=== PATIENT | female | born 1990 ===

== ENCOUNTER 2025-06-27 13:32 | Outpatient (REF) | payer OTHER, SELFPAY ==
[2025-06-27 17:56] LABS: MANUAL DIFF FLAG NO
[2025-06-27 18:11] LABS: Appearance Urine Clear; Glucose Urine UA Negative (Negative); Hematocrit 37.4 % (37.0-47.0); Hemoglobin 12.7 g/dl (12.0-16.0); Imm Gran Abs Auto 0.03 X10*3/uL (0.00-0.03); Imm Gran Pct Auto 0.3 % (0.0-0.4); Lymphocytes Absolute Auto 2.2 X10*3/uL (1.2-4.9); Mean Corpuscular HGB Conc 34.0 g/dl (31.0-35.0); Mean Corpuscular Hemoglobin 27.2 pg (27.0-33.0); Mean Corpuscular Volume 80.1 fL (80.0-98.0); NRBC Abs Auto 0.000 X10*3/uL (0.0-0.012); NRBC Pct Auto 0.0 /100WBC (0.0-0.2); PH 6.5 (5.0-9.0); Platelet Count 330 X10*3/uL (160-400); Red Blood Count 4.67 X10*6/uL (4.20-5.50); Specific Gravity - Urine 1.015 (1.005-1.025); White Blood Count 9.2 X10*3/uL (4.8-10.8)
[2025-06-27 18:15] LABS: Hemoglobin A1C 125.1159 umol/L
[2025-06-27 18:40] LABS: Ferritin 63 ng/mL (10-122)
[2025-06-27 18:41] LABS: Alanine Aminotransferase 31 U/L (0-31); Albumin Level 4.6 g/dL (3.5-5.0); Alkaline Phosphatase 80 U/L (39-117); Anion Gap 10 (12-20); Aspartate Amino Transferase 36 U/L (5-31); Blood Urea Nitrogen 10 mg/dL (9-16); Calcium 9.1 mg/dL (8.4-10.2); Carbon Dioxide 27 mmol/L (22-29); Chloride 109 mmol/L (96-108); Cholesterol 178 mg/dL (<200); Estimated Glomerular Filt Rate > 60; HDL Cholesterol 51 mg/dL (>40); Iron 82 mcg/dL (30-160); Magnesium 2.2 mg/dL (1.6-2.6); Percent Iron Saturation 25 % (15-50); Potassium 4.0 mmol/L (3.3-5.1); Sodium 142 mmol/L (135-145); Total Iron Binding Capacity 332 mcg/dL (228-428); Total Protein 7.2 g/dL (6.5-8.0); Triglycerides 101 mg/dL (<150); Unsaturated Iron Binding 250 ug/dL
[2025-06-27 19:02] LABS: Folate 16.1 ng/mL (> or = 4.0); Vitamin B12 589 pg/mL (200-900)
[2025-06-27 19:09] LABS: Erythrocyte Sedimentation Rate 5 MM/HR (0-20)
[2025-06-28 05:27] LABS: Transferrin 305 mg/dL (188-341)
[2025-06-28 08:35] LABS: HBS Num1 7.37 mIU/mL (0-7.99); HBsAGNum1 0.35 S/CO (0.00-0.99); HIV Num 1 0.05 S/CO (0.00-0.99); Hepatitis B Surface Antigen Negative (Negative); ~HepC Num1 0.07 S/CO (0.00-0.79); ~Hepatitis B Surface Antibody NONREACTIVE (Nonreactive); ~Hepatitis C Antibody Nonreactive (Nonreactive)
[2025-07-01 22:08] LABS: Anti Nuclear Antibody Pattern Nuclear, Homogeneous; Anti Nuclear Antibody Screen POSITIVE (NEGATIVE); Anti Nuclear Antibody Titer 1:320 titer
[2025-07-03 00:53] LABS: VITAMIN D (1,25 OH) D3 64 pg/mL; Vit D (1,25-Dihydroxy) Total 64 pg/mL (18-72); Vitamin D (1,25 OH) D2 <8 pg/mL
== END 2025-06-27 13:33 | disposition home or self-care (01) ==
LOC: HO.HKASLDS 13:32
PROVIDERS: PCP Student in an Organized Health Care Education/Training Program; Visit Provider Student in an Organized Health Care Education/Training Program
DX: Z76.89 Persons encountering health services in other specified circumstances (principal); Z13.9 Encounter for screening, unspecified; Z13.1 Encounter for screening for diabetes mellitus; Z13.220 Encounter for screening for lipoid disorders; Z13.6 Encounter for screening for cardiovascular disorders; Z11.4 Encounter for screening for human immunodeficiency virus [HIV]; Z11.3 Encounter for screening for infections with a predominantly sexual mode of transmission; Z71.9 Counseling, unspecified; D50.9 Iron deficiency anemia, unspecified; R76.0 Raised antibody titer; R06.83 Snoring; M25.50 Pain in unspecified joint; R53.83 Other fatigue; E66.812 Obesity, class 2; R51.9 Headache, unspecified; R63.5 Abnormal weight gain; R19.7 Diarrhea, unspecified; R14.0 Abdominal distension (gaseous); L65.9 Nonscarring hair loss, unspecified; F41.9 Anxiety disorder, unspecified; N92.6 Irregular menstruation, unspecified; D21.9 Benign neoplasm of connective and other soft tissue, unspecified; Z82.69 Family history of other diseases of the musculoskeletal system and connective tissue; Z87.42 Personal history of other diseases of the female genital tract; Z83.49 Family history of other endocrine, nutritional and metabolic diseases; Z68.38 Body mass index [BMI] 38.0-38.9, adult
CPT/HCPCS: 36415; 80053; 80061; 81003; 82607; 82652; 82728; 82746; 83036; 83540; 83735; 84443; 84466; 85025; 85652; 86038; 86039; 86140; 86706; 86803; 87340; 87389; 99202

== ENCOUNTER 2025-06-27 13:32 | Outpatient (AMB) | payer OTHER, SELFPAY ==
--- NOTE | 2025-06-27 13:34 | A.OFFPC_ITS ---
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 Certified Prosthetist/Orthotist Required: No Accompanied by: Self / Same As Patient Allergies No Known Allergies Allergy (Verified 06/27/25 13:34) Tobacco use date assessed: 06/27/25 Dental Screening Dental Screen Date: 06/27/25 Did you have a dental visit in the last 12 months?: Yes Did you have a dental problem in the last 6 months where you did not have access to dental care?: No Was dental information given to patient?: Patient has dentist HPI HPI Comments History of Present Illness Details History of Present Illness The patient is a 35-year-old female presenting with fatigue and associated symptoms. Fatigue: - Fatigue has been persistent for over a year, worsening recently. - Associated with heavy menstrual bleedi ng, ovarian cysts, and fibroids. - No dizziness or shortness of breath re ported. - Family history of thyroid disorders an d lupus noted. Heavy Menstrual Bleeding: - Patient reports heavy menstrual bleedi ng, associated with ovarian cysts and fibroids. - Recent rupture of a cyst managed with ibuprofen. Anxiety: - Patient experiences anxiety, sometimes accompanied by palpitations. Alopecia: - Patient reports hair loss, no prior di agnosis of anemia. Bloating: - Persistent bloating for over a year, w orsened recently. - Occurs throughout the day, not related to meals. Unintentional Weight Gain: - Gained approximately 30 pounds over e past year without changes in diet or exercise. Morning Headaches: - Morning headaches reported, sometimes severe. -wakes up gasping for air feels fatigue and tired during the day Diarrhea: - Persistent diarrhea for the past two w eeks, possibly viral in origin. Ankle and Foot Pain: - Chronic ankle and foot pain, particula rly in the morning. - No history of trauma or injury. Review of Systems - General: Reports fatigue for over a ye ar. Denies dizziness or shortness of breath. - Cardiovascular: Reports palpitations a ssociated with anxiety. Denies chest pain. - Respiratory: Denies dyspnea or wheezin g. - Gastrointestinal: Reports persistent b loating and diarrhea for the past two weeks. Denies constipation. - Neurological: Reports morning headache s and brain fog. Denies dizziness. - Musculoskeletal: Reports ankle and seema t pain, particularly in the morning. - Dermatological: Reports hair loss. 10-point ROS reviewed and negative excep t as noted in HPI Past Medical History - Ovarian cysts and fibroids - Anxiety - Family history of thyroid disorders - Family history of lupus Health Maintenance - Pap smear overdue, last performed six years ago - Referral to semaphore operator for weight ma nagement Physical Exam General: Well-appearing, in no acute distress. Vital signs: Within normal limits. HEENT: Normocephalic, atraumatic. PERRLA, EOMI. Conjunctiva clear, sclera anicteric. Oropharynx clear, mucous membranes moist. TMs intact bilaterally. Neck: Supple, no lymphadenopathy, no thyromegaly, no JVD or carotid bruits. Cardiovascular: RRR, normal S1/S2, no murmurs, rubs, or gallops. Peripheral pulses 2+ and symmetric. No edema. Respiratory: Lungs clear to auscultation bilaterally, no wheezes, rales, or rhonchi. Normal effort. Abdomen: Soft, non-tender, non-distended. Normoactive bowel sounds. No hepatosplenomegaly, no masses. MSK: Full range of motion, no joint swelling or deformity. Normal gait. Reports ankle and foot pain in the morning, particularly in the left ankle. Skin: Warm, dry, intact. No rashes, lesions, or pallor. Neuro: Alert and oriented x3. Cranial nerves II-XII intact. Strength 5/5 throughout. Sensation intact. Reflexes 2+ symmetric. Normal coordination and gait. Reports brain fog and memory issues. Psych: Appropriate mood and affect. Normal judgment and insight. Reports anxiety. Plan 1. Fatigue - Order home sleep study to evaluate for obstructive sleep apnea. - Conduct comprehensive blood tests incl uding CBC, CMP, thyroid panel, and iron studies. 2. Heavy Menstrual Bleeding - Consider iron supplementation due to p otential iron deficiency anemia. 3. Anxiety - Monitor symptoms and consider further evaluation if symptoms persist. 4. Alopecia - Evaluate for potential underlying caus es such as thyroid dysfunction or nutritional deficiencies. 5. Bloating - Monitor symptoms and consider dietary modifications. 6. Unintentional Weight Gain - Referral to semaphore operator for weight ma nagement and dietary counseling. 7. Morning Headaches - Evaluate for potential causes such as sleep apnea or nutritional deficiencies. 8. Diarrhea - Prescribe loperamide for symptomatic r elief. 9. Ankle And Foot Pain - Consider further evaluation if symptom s persist. Discussion Notes During the consultation, I discussed the potential causes of the patient's fatigue, including sleep apnea and anemia. I explained the need for a home sleep study and comprehensive blood tests to evaluate these conditions. We also talked about the importance of addressing her heavy menstrual bleeding and potential iron deficiency. I recommended a referral to a semaphore operator for weight management and dietary counseling. The patient was informed about the prescription of loperamide for diarrhea and the need for follow-up if symptoms persist. Patient was informed and verbally consented to the use of an ambient scribe for clinic note documentation during this visit. Patient Instructions - Schedule a home sleep study as instruc saniya. - Complete all prescribed blood tests at the earliest convenience. - Take loperamide as needed for diarrhea , following the prescribed dosage. - Follow up with a semaphore operator for diet umesh counseling and weight management. - Return for follow-up if symptoms persi st or worsen. [facility] Medical History (Updated 06/27/25 @ 13:59 by Cristo Garcia MD) Joint pain Family history thyroid disease in brother Morning headache Fatigue Snoring Family History (Updated 06/27/25 @ 13:40 by Mauro Jaimes MA) Father Lung cancer Mother Family history of thyroid problem Social History (Updated 06/27/25 @ 13:40 by Mauro Jaimes MA) Housing: Apartment Alcohol intake: current Alcohol intake frequency: holidays/special occasions only Patient Tobacco Use Status: Never used Tobacco e-Cigarette/Vaping Use: Currently Using service: No Current occupational status: unemployed Cognitive needs: No Hearing needs: No Vision needs: No Questionnaire PHQ-9 Over the last 2 weeks, how often have you been bothered by any of the following problems? 1. Little interest or pleasure in doing things: more than half the days 2. Feeling down, depressed, or hopeless: several days 3. Trouble falling or staying asleep, or sleeping too much: several days 4. Feeling tired or having little energy: nearly every day 5. Poor appetite or overeating: several days 6. Feeling bad about yourself - or that you are a failure or have let yourself or your family down: not at all 7. Trouble concentrating on things, such as reading the newspaper or watching television: more than half the days 8. Moving or speaking so slowly that other people could have noticed. Or the opposite - being so fidgety or restless that you have been moving around a lot more than usual: not at all 9. Thoughts that you would be better off or of hurting yourself in some way: not at all Total score: 10 Source: Developed by Drs. Celso Godfrey, Lisy Oliva, Jhonathan Bright and colleagues, with an educational sushil from [employer]. Thrive Questionnaire Date Thrive assessed: 06/27/25 I am a: Patient What is your living situation today?: I have a steady place to live Within the past 12 months, did the food you bought not last and you didn't have the money to get more?: Sometimes True Within the past 12 months, did you worry whether your food would run out before you got money to buy more?: Sometimes True Do you have trouble paying for medicines?: No Do you have trouble getting transportation to medical appointments?: No Do you have trouble paying your heating and electricity bill?: No Do you have trouble taking care of your child, family member or friend?: No Are you currently unemployed and looking for a job?: Yes Are you interested in more education?: I choose not to answer this question Please select the resources that you would like help with: None Currently or been in a relationship where the following occur: No concerns reported THRIVE Score: 2 AUDIT C Alcohol Use Questionnaire (AUDIT-C) 1. How often do you have a drink containing alcohol?: Monthly or less 2. How many drinks containing alcohol do you have on a typical day when you are drinking?: 1 or 2 3. How often do you have six or more drinks on one occasion?: Never Total Score: 1 JOE-7 AMB Questionnaire JOE-7 Date JOE - 7 assessed: 06/27/25 Feeling nervous, anxious, or on edge: 1 = Several days Not being able to stop or control worryin = Several days Worrying too much about different things: 1 = Several days Trouble relaxin = More than half the days Being so restless that it is hard to sit still: 0 = Not at all Becoming easily annoyed or irritable: 1 = Several days Feeling afraid as if something awful might happen: 1 = Several days Total JOE-7 score (0-4 normal; 5-9 mild; 10-14 moderate; 15-21 severe): 7 Source: Developed by Drs. Celso Godfrey, Lisy Oliva, Jhonathan Bright and colleagues, with an educational sushil from [employer]. Physical exam (Primary Care) Vital Signs: Last Vital Signs Resp 16 06/27/25 13:35 BMI result Body Mass Index 38.2 Tobacco/Smoking Status: Tobacco use Status Patient Tobacco Use Status Never used Tobacco 06/27/25 13:40 Currently or been in a relationship where the following occur: No concerns reported Coding Level of Care Code New Pt Level 4 (08851) Diagnoses Encounter to establish care Z76.89 Encounter for screening, unspecified Z13.9 Counseling, unspecified Z71.9 Screening for diabetes mellitus Z13.1 Screening for lipoid disorders Z13.220 Screening for hypertension Z13.6 Screening for HIV (human immunodeficiency virus) Z11.4 Routine screening for STI (sexually transmitted infection) Z11.3 Class 2 obesity E66.812 Joint pain M25.50 Morning headache R51.9 Fatigue R53.83 Weight gain R63.5 Diarrhea R19.7 Bloating R14.0 Alopecia L65.9 Anxiety F41.9 Menstrual bleeding problem N92.6 Family history of systemic lupus erythematosus Z82.69 Family history of thyroid disorder Z83.49 History of ovarian cyst Z87.42 Fibroids D21.9 Assessment & Plan Assessment & Plan (1) Encounter to establish care: Code(s): Z76.89 - Persons encountering health services in other specified circumstances (2) Encounter for screening, unspecified: Code(s): Z13.9 - Encounter for screening, unspecified (3) Counseling, unspecified: Code(s): Z71.9 - Counseling, unspecified (4) Screening for diabetes mellitus: Code(s): Z13.1 - Encounter for screening for diabetes mellitus (5) Screening for lipoid disorders: Code(s): Z13.220 - Encounter for screening for lipoid disorders (6) Screening for hypertension: Code(s): Z13.6 - Encounter for screening for cardiovascular disorders (7) Screening for HIV (human immunodeficiency virus): Code(s): Z11.4 - Encounter for screening for human immunodeficiency virus [HIV] (8) Routine screening for STI (sexually transmitted infection): Code(s): Z11.3 - Encounter for screening for infections with a predominantly sexual mode of transmission (9) Class 2 obesity: Code(s): E66.812 - Obesity, class 2 (10) Joint pain: Code(s): M25.50 - Pain in unspecified joint Category: Medical (11) Morning headache: Code(s): R51.9 - Headache, unspecified Category: Medical (12) Fatigue: Code(s): R53.83 - Other fatigue Category: Medical (13) Weight gain: Code(s): R63.5 - Abnormal weight gain (14) Diarrhea: Code(s): R19.7 - Diarrhea, unspecified (15) Bloating: Code(s): R14.0 - Abdominal distension (gaseous) (16) Alopecia: Code(s): L65.9 - Nonscarring hair loss, unspecified (17) Anxiety: Code(s): F41.9 - Anxiety disorder, unspecified (18) Menstrual bleeding problem: Code(s): N92.6 - Irregular menstruation, unspecified (19) Family history of systemic lupus erythematosus: Code(s): Z82.69 - Family history of other diseases of the musculoskeletal system and connective tissue (20) Family history of thyroid disorder: Code(s): Z83.49 - Family history of other endocrine, nutritional and metabolic diseases (21) History of ovarian cyst: Code(s): Z87.42 - Personal history of other diseases of the female genital tract (22) Fibroids: Code(s): D21.9 - Benign neoplasm of connective and other soft tissue, unspecified Plan Orders: Orders Comprehensive Met. Panel Today Z13.9 - Encounter for screening, unspecified, Z76.89 - Persons encountering health services in other specified circumstances Vitamin B12 and Folate Today Z13.9 - Encounter for screening, unspecified, Z76.89 - Persons encountering health services in other specified circumstances RT home sleep study Today E66.812 - Obesity, class 2, R06.83 - Snoring, R51.9 - Headache, unspecified, R53.83 - Other fatigue Magnesium Today Z13.9 - Encounter for screening, unspecified, Z76.89 - Persons encountering health services in other specified circumstances Ferritin Today D50.9 - Iron deficiency anemia, unspecified IRON PROFILE Today D50.9 - Iron deficiency anemia, unspecified Transferrin Today D50.9 - Iron deficiency anemia, unspecified Erythrocyte Sedimentation Rate Today R76.0 - Raised antibody titer PRADEEP Reflex Titer and Pattern Today M25.50 - Pain in unspecified joint, R53.83 - Other fatigue, Z83.49 - Family history of other endocrine, nutritional and metabolic diseases Complete Blood Count Auto Diff Today Z13.9 - Encounter for screening, unspecified, Z76.89 - Persons encountering health services in other specified circumstances Hemoglobin A1c Today Z13.9 - Encounter for screening, unspecified, Z76.89 - Persons encountering health services in other specified circumstances Hepatitis B Surface Antibody Today Z13.9 - Encounter for screening, unspecified, Z76.89 - Persons encountering health services in other specified circumstances Hepatitis B Surface Antigen Today Z13.9 - Encounter for screening, unspecified, Z76.89 - Persons encountering health services in other specified circumstances Hepatitis C Antibody Today Z13.9 - Encounter for screening, unspecified, Z76.89 - Persons encountering health services in other specified circumstances HIV Ab/Ag Today Z13.9 - Encounter for screening, unspecified, Z76.89 - Persons encountering health services in other specified circumstances Lipid Panel Today Z13.9 - Encounter for screening, unspecified, Z76.89 - Persons encountering health services in other specified circumstances TSH reflex Free T4 Today Z13.9 - Encounter for screening, unspecified, Z76.89 - Persons encountering health services in other specified circumstances UA CC w/rflx Micro + Cult Today Z13.9 - Encounter for screening, unspecified, Z76.89 - Persons encountering health services in other specified circumstances Vitamin D 1,25 dihydroxy Today Z13.9 - Encounter for screening, unspecified, Z76.89 - Persons encountering health services in other specified circumstances C Reactive Protein Today R76.0 - Raised antibody titer Referrals Nutrition/Dietitian Referral E66.812 - Obesity, class 2 Medications: New loperamide (Anti-Diarrheal (loperamide)) 2 mg PO Q6H PRN 14 caps 0RF loose stool
[2025-06-27 13:35] VITALS: BP 132/86; PULSE 97; RESP 16; TEMP 37.1; O2SAT 98; BMI 38.2
--- OUTSIDE RECORDS SUMMARY | 2025-06-27 18:07 | XMS_ITS | Patient Health Record ---
Author Organization [facility] Address [address] [place] [address] Care Team Providers Care Foundry Worker Name Role Phone Hector Black Unavailable [phone] Reason For Referral No Information Medications Medication SIG (Take, Route, Frequency, Duration) Notes Start Date End Date Status predniSONE 20 MG 3 tabs once daily on days 1-3 then 2 tabs daily on days 4-6 then 1 tab daily on days 7-9 then stop Orally Once a day; Duration: 9 days 08/05/2017 Active Zithromax Z-Nilson 250 MG 2 tablets on the first day, then 1 tablet daily for 4 days Orally Once a day; Duration: 5 day(s) 08/05/2017 Active guaiFENesin AC 100-10 MG/5ML 5 mls - 10 mls as needed for cough Orally every 4 hrs; Duration: [address] heavy equipment while using this medication 08/05/2017 Active Augmentin 875-125 MG 1 tablet Orally every 12 hrs; Duration: 10 day(s) 06/17/2016 Not-Taking Plan Of Treatment Pending Test Test Name Order Date Rapid Strep, In Office 06/17/2016 Insurance Providers Payer Name Payer Address Payer Phone Subscriber Number Group Number Insured Name Patient Relationship to Insured Coverage Start Date Coverage End Date [facility] [address] [place] [address] [id number] Ira Lentz Self - patient is the insured [employer] [address] [address] [place], [place] [id number] Ira Lentz Self - patient is the insured Medicaid [address] [place] [address] [phone] [id number] Ira Lentz Self - patient is the insured Medical (General) History Medical History History ICD Code bronchitis
== END 2025-06-27 14:10 | disposition home or self-care (01) ==
LOC: HO.HMCFMS 13:33
PROVIDERS: PCP Student in an Organized Health Care Education/Training Program; Visit Provider Student in an Organized Health Care Education/Training Program
DX: R51.9 Headache, unspecified (principal); E66.812 Obesity, class 2; Z68.38 Body mass index [BMI] 38.0-38.9, adult; M25.50 Pain in unspecified joint; R53.83 Other fatigue; R63.5 Abnormal weight gain; R19.7 Diarrhea, unspecified; R14.0 Abdominal distension (gaseous); L65.9 Nonscarring hair loss, unspecified; F41.9 Anxiety disorder, unspecified; N92.6 Irregular menstruation, unspecified; D21.9 Benign neoplasm of connective and other soft tissue, unspecified

== ENCOUNTER 2025-07-11 10:06 | Outpatient (AMB) | payer OTHER, SELFPAY ==
[2025-07-11 10:10] VITALS: BP 153/97; PULSE 76; RESP 16; TEMP 36.5; O2SAT 99; BMI 38.1
--- NOTE | 2025-07-11 10:10 | A.OFFPC_ITS ---
Vital Signs 07/11/25 10:10 Height 5 ft 3.39 in Weight 217 lb 8 oz BMI 38.1 BP 153/97 H Blood Pressure Location Rt brachial Position Sitting Respiration 16 Pulse 76 Pulse Source Pulse Oximeter Temp 97.7 F Temp Source Oral Pulse Oximetry (%) 99 Oxygen Delivery Method Room Air Intake Visit Reasons: 2 week follow up Referral Clerk Required: No Accompanied by: Self / Same As Patient Allergies No Known Allergies Allergy (Verified 07/11/25 10:10) Tobacco use date assessed: 06/27/25 Dental Screening Dental Screen Date: 06/27/25 Did you have a dental visit in the last 12 months?: Yes Did you have a dental problem in the last 6 months where you did not have access to dental care?: No Was dental information given to patient?: Patient has dentist HPI HPI Comments History of Present Illness Details History of Present Illness The patient is a 35-year-old female presenting for evaluation of laboratory results and management of persistent fatigue. Positive antinuclear antibody (LAYLA): - The LAYLA test was positive with a titer of 1:320, indicating a potential autoimmune process. - The patient was referred to a rheumato logist for further evaluation and management. Elevated aspartate aminotransferase (AST): - AST level was slightly elevated at 36 U/L, above the normal cutoff of 31 U/L. - The elevation is not currently concern ing due to normal cholesterol and triglyceride levels. Hyperlipidemia: - LDL cholesterol was slightly elevated at 107 mg/dL. - The patient has an upcoming appointmen t with a conditioning room worker to address dietary concerns. Fatigue: - The patient reports persistent fatigue for over a year, worsening recently. - Fatigue was initially associated with heavy menstrual bleeding and ovarian cysts or fibroids. - Laboratory tests ruled out anemia due to normal hemoglobin, iron, B12, and folate levels. Review of Systems - General: Reports persistent fatigue fo r over a year, worsening recently. - Dermatological: Reports alopecia. - Gastrointestinal: Reports bloating and diarrhea; denies current diarrhea after treatment with loperamide. - Neurological: Reports morning headache s. - Endocrine: Reports unintentional weigh t gain. 10-point ROS reviewed and negative excep t as noted in HPI Past Medical History Health Maintenance - Referral to blunger machine operator for evaluat ion of positive LAYLA and potential autoimmune conditions. - Referral to medical weight loss clinic for comprehensive weight management. - Appointment with conditioning room worker schedule d for dietary management. Physical Exam General: Well-appearing, in no acute distress. Vital signs: Within normal limits. HEENT: Normocephalic, atraumatic. PERRLA, EOMI. Conjunctiva clear, sclera anicteric. Oropharynx clear, mucous membranes moist. TMs intact bilaterally. Neck: Supple, no lymphadenopathy, no thyromegaly, no JVD or carotid bruits. Cardiovascular: RRR, normal S1/S2, no murmurs, rubs, or gallops. Peripheral pulses 2+ and symmetric. No edema. Respiratory: Lungs clear to auscultation bilaterally, no wheezes, rales, or rhonchi. Normal effort. Abdomen: Soft, non-tender, non-distended. Normoactive bowel sounds. No hepatosplenomegaly, no masses. MSK: Full range of motion, no joint swelling or deformity. Normal gait. Skin: Warm, dry, intact. No rashes, lesions, or pallor. Neuro: Alert and oriented x3. Cranial nerves II-XII intact. Strength 5/5 throughout. Sensation intact. Reflexes 2+ symmetric. Normal coordination and gait. Psych: Appropriate mood and affect. Normal judgment and insight. Plan 1. Positive Antinuclear Antibody (Layla) - Referral to blunger machine operator for further evaluation of positive LAYLA and potential autoimmune conditions. 2. Elevated Aspartate Aminotransferase ( Ast) - Monitor liver function tests periodica lly due to slight elevation in AST. 3. Hyperlipidemia - Dietary modifications to be discussed with conditioning room worker to manage elevated LDL cholesterol. 4. Fatigue - Continue monitoring symptoms and follo w up with primary care provider. Discussion Notes During the visit, I discussed the positive LAYLA result and its implications, explaining that it may indicate an autoimmune condition, and referred the patient to a blunger machine operator for further evaluation. We also reviewed the slightly elevated AST level, which is not currently concerning, and discussed the importance of monitoring liver function. The patient's LDL cholesterol is slightly elevated, and I emphasized the role of dietary modifications, referring her to a conditioning room worker. We addressed her persistent fatigue, ruling out anemia, and I recommended continued monitoring of symptoms. I also referred her to a medical weight loss clinic for comprehensive management. Follow-up appointments were scheduled to reassess her condition and ensure coordinated care among specialists. Patient was informed and verbally consented to the use of an ambient scribe for clinic note documentation during this visit. Patient Instructions - Follow up with the blunger machine operator for further evaluation of the positive LAYLA result. - Attend the appointment with the nutrit ionist to discuss dietary changes for managing cholesterol levels. - Visit the medical weight loss clinic f or a comprehensive weight management plan. - Monitor symptoms of fatigue and report any changes to your primary care provider. Total time spent caring for the patient today was 30 minutes. This includes time spent before the visit reviewing the chart, time spent documenting, and time spent reviewing laboratory results, diagnostic imaging, medications, performing a medically necessary evaluation, counseling on diagnoses, care coordination, ordering appropriate tests, ordering appropriate medications. [facility] Medical History (Updated 07/11/25 @ 10:29 by Cristo Garcia MD) Positive LAYLA (antinuclear antibody) Joint pain Family history thyroid disease in brother Morning headache Fatigue Snoring Family History Father Lung cancer Mother Family history of thyroid problem Social History Housing: Apartment Alcohol intake: current Alcohol intake frequency: holidays/special occasions only Patient Tobacco Use Status: Never used Tobacco e-Cigarette/Vaping Use: Currently Using service: No Current occupational status: unemployed Cognitive needs: No Hearing needs: No Vision needs: No Questionnaire PHQ-9 Over the last 2 weeks, how often have you been bothered by any of the following problems? 1. Little interest or pleasure in doing things: more than half the days 2. Feeling down, depressed, or hopeless: several days 3. Trouble falling or staying asleep, or sleeping too much: several days 4. Feeling tired or having little energy: nearly every day 5. Poor appetite or overeating: several days 6. Feeling bad about yourself - or that you are a failure or have let yourself or your family down: not at all 7. Trouble concentrating on things, such as reading the newspaper or watching television: more than half the days 8. Moving or speaking so slowly that other people could have noticed. Or the opposite - being so fidgety or restless that you have been moving around a lot more than usual: not at all 9. Thoughts that you would be better off or of hurting yourself in some way: not at all Total score: 10 Source: Developed by Drs. Celso Godfrey, Lisy Oliva, Jhonathan Bright and colleagues, with an educational sushil from [employer]. Thrive Questionnaire Date Thrive assessed: 06/27/25 I am a: Patient What is your living situation today?: I have a steady place to live Within the past 12 months, did the food you bought not last and you didn't have the money to get more?: Sometimes True Within the past 12 months, did you worry whether your food would run out before you got money to buy more?: Sometimes True Do you have trouble paying for medicines?: No Do you have trouble getting transportation to medical appointments?: No Do you have trouble paying your heating and electricity bill?: No Do you have trouble taking care of your child, family member or friend?: No Do you have trouble with day-to-day activities such as bathing, preparing meals, shopping, managing finances, etc.?: No Are you currently unemployed and looking for a job?: Yes Are you interested in more education?: I choose not to answer this question Please select the resources that you would like help with: None Currently or been in a relationship where the following occur: No concerns reported THRIVE Score: 2 AUDIT C Alcohol Use Questionnaire (AUDIT-C) 1. How often do you have a drink containing alcohol?: Monthly or less 2. How many drinks containing alcohol do you have on a typical day when you are drinking?: 1 or 2 3. How often do you have six or more drinks on one occasion?: Never Total Score: 1 JOE-7 AMB Questionnaire JOE-7 Date JOE - 7 assessed: 06/27/25 Feeling nervous, anxious, or on edge: 1 = Several days Not being able to stop or control worryin = Several days Worrying too much about different things: 1 = Several days Trouble relaxin = More than half the days Being so restless that it is hard to sit still: 0 = Not at all Becoming easily annoyed or irritable: 1 = Several days Feeling afraid as if something awful might happen: 1 = Several days Total JOE-7 score (0-4 normal; 5-9 mild; 10-14 moderate; 15-21 severe): 7 Source: Developed by Jhon Parraet B.W. Pj, Jhonathan Bright and colleagues, with an educational sushil from [employer]. Physical exam (Primary Care) Vital Signs: Last Vital Signs Temp 97.7 F 07/11/25 10:10 Pulse 76 07/11/25 10:10 Resp 16 07/11/25 10:10 BP 153/97 H 07/11/25 10:10 Pulse Ox 99 07/11/25 10:10 Oxygen Delivery Method Room Air 07/11/25 10:10 BMI result Body Mass Index 38.1 Tobacco/Smoking Status: Tobacco use Status Tobacco use date assessed 06/27/25 07/11/25 10:13 Patient Tobacco Use Status Never used Tobacco 07/11/25 10:13 e-Cigarette/Vaping Use Currently Using 07/11/25 10:13 PHQ-9: PHQ-9 Score PHQ-9: Total score 10 07/11/25 10:13 Thrive Assessment: Date of Thrive Assessment Date Thrive assessed 06/27/25 07/11/25 10:13 Currently or been in a relationship where the following occur: No concerns reported Coding Level of Care Code Est Pt Level 4 (65725) Diagnoses Positive LAYLA (antinuclear antibody) R76.89 Fatigue R53.83 Elevated AST (SGOT) R74.01 Hyperlipidemia E78.5 Assessment & Plan Assessment & Plan (1) Positive LAYLA (antinuclear antibody): Code(s): R76.89 - Other specified abnormal immunological findings in serum Category: Medical (2) Fatigue: Code(s): R53.83 - Other fatigue Category: Medical (3) Elevated AST (SGOT): Code(s): R74.01 - Elevation of levels of liver transaminase levels (4) Hyperlipidemia: Code(s): E78.5 - Hyperlipidemia, unspecified Plan Orders: Referrals Medical Weight Management Referral E66.812 - Obesity, class 2 Rheumatology Referral R53.83 - Other fatigue, R76.89 - Other specified abnormal immunological findings in serum
== END 2025-07-11 10:34 | disposition home or self-care (01) ==
LOC: HO.HMCFMS 10:07
PROVIDERS: PCP Student in an Organized Health Care Education/Training Program; Visit Provider Student in an Organized Health Care Education/Training Program
DX: R76.89 Other specified abnormal immunological findings in serum (principal); R53.83 Other fatigue; R74.01 Elevation of levels of liver transaminase levels; E78.5 Hyperlipidemia, unspecified

== ENCOUNTER → 2025-07-11 10:06 | Outpatient (BNVA) | payer OTHER, SELFPAY | PROVIDERS: Visit Provider Student in an Organized Health Care Education/Training Program | DX: R76.89 Other specified abnormal immunological findings in serum (principal); R53.83 Other fatigue; R74.01 Elevation of levels of liver transaminase levels; E78.5 Hyperlipidemia, unspecified | CPT/HCPCS: 99212 ==

== ENCOUNTER 2025-08-13 09:55 | Outpatient (AMB) | payer OTHER, SELFPAY ==
--- NOTE | 2025-08-13 09:58 | MHC.AMNUTRGE ---
VS Expanded 08/13/25 10:04 Height 5 ft 3.3 in Weight 220 lb 3.869 oz BMI 38.6 Intake Visit Reasons: Obesity, class 2 Allergies No Known Allergies Allergy (Verified 07/11/25 10:10) Nutrition Presentation Details: Patient presents for MNT for obesity class 2 food frequency fish: 0x/wk dairy: 1/d fruits: 1/d water : 64 oz /day + green tea MVI: on and off Pt has questions regarding meal replacements Denies having food allergies Reports having gained about 30 lbs in yrs time Has questions regarding macros BS Monitoring Most Recent Diabetes Results: Cholesterol, (<200) 178 mg/dL 06/27/25 HDL Cholesterol, (>40) 51 mg/dL 06/27/25 Triglycerides, (<150) 101 mg/dL 06/27/25 Creatinine, (0.5-1.4) 0.74 mg/dL 06/27/25 BUN, (9-16) 10 mg/dL 06/27/25 Sodium, (135-145) 142 mmol/L 06/27/25 Potassium, (3.3-5.1) 4.0 mmol/L 06/27/25 Chloride, (96-108) 109 mmol/L H 06/27/25 Carbon Dioxide, (22-29) 27 mmol/L 06/27/25 Calcium, (8.4-10.2) 9.1 mg/dL 06/27/25 AST, (5-31) 36 U/L H 06/27/25 ALT, (0-31) 31 U/L 06/27/25 Total Protein, (6.5-8.0) 7.2 g/dL 06/27/25 Albumin, (3.5-5.0) 4.6 g/dL 06/27/25 WWL-Jzdknus-Je.Jeor Equation Height: 5 ft 3.3 in Weight: 220 lb Resting Metabolic Rate: 1663.66 Calculated Activity Level: Sedentary Calories Needed to Maintain Weight: 1995.39 Diagnosis Nutrition problem #1: food nutri know defi As related to (etiology) #1: diagnosis As evidenced by (sign/symptom) #1: knowledge deficit of diet [facility] Medical History (Updated 08/13/25 @ 09:59 by Gloria Serna, RD, LDN) Positive PRADEEP (antinuclear antibody) Joint pain Family history thyroid disease in brother Morning headache Fatigue Snoring Family History Father Lung cancer Mother Family history of thyroid problem Social History Housing: Apartment Alcohol intake: current Alcohol intake frequency: holidays/special occasions only Patient Tobacco Use Status: Never used Tobacco e-Cigarette/Vaping Use: Currently Using service: No Current occupational status: unemployed Cognitive needs: No Hearing needs: No Vision needs: No Assessment & Plan Assessment & Plan (1) Obesity, Class II, BMI 35-39.9: Code(s): E66.9 - Obesity, unspecified Category: Medical Plan: current wt: 100 kg ( ) est kcal needs as per MSJ: 2000 est protein needs as per 1 g/kg BW: 100 est fluid needs as per 30 ml/kg BW: 3000 Recommended fiber > 12 g /day and gradually increase up to 25-28 g /day or as tolerated Recommended sodium intake: 2300 mg per day or less Nutrition topics discussed : Reviewed (R), Pt verbalized understanding (V) , not applicable (N/A) R, V, : Healthy Plate Method Concept: R, general: Carbohydrates: food sources of carbohydrates, relationship of carbohydrates to blood glucose, fatty liver GI health. Recommended total amount of carbohydrates per meals and snack. Differences between simple carbohydrates and complex carbohydrates R, general : Lean protein foods including vegan , vegetarian sources of protein. Benefits of protein (including but not limited to healing, nutritional value , benefits in weight loss, glucose control R, general: Fats : Source of fats, benefits of fats. Difference between saturated and unsaturated fats. Saturated fats and its contribution to inflammation R, V, N/A: Fiber: food sources and role of fiber in the diet (including but not limited to its role as a prebiotic, benefits in constipation, role in IBS , role in glucose control and cholesterol level) R, : Hydration: role of hydration and prevention of dehydration or over hydration. Foods and water content. R, V, N/A: Vitamins and Minerals in foods and supplements R, V, N/A: Interpreting food labels, including serving size, macronutrients, vitamins, minerals, allergens, ingredient list , % daily value Patient Instructions: Work on Reducing on carbs (breads, pasta, rice, crackers ) 45 g or less per meal and 0-20 g as snack See meal ideas as reference Coding Level of Care Code Nutr Indiv Intake (22787) Diagnoses Obesity, Class II, BMI 35-39.9 E66.9 Time Spent (min) 30
[2025-08-13 10:04] VITALS: BMI 38.6
[2025-08-13 10:46] VITALS: BMI 38.6
--- OUTSIDE RECORDS SUMMARY | 2025-08-13 11:17 | XMS_ITS | Patient Health Record ---
Author Organization [facility] Address [address] [place] [address] Care Team Providers Care Stock Fitter Name Role Phone Hector Black Unavailable [phone] Reason For Referral No Information Medications Medication [...] Insured Coverage Start Date Coverage End Date [facility] [address] [place] [address] [id number] Ira Lentz Self - patient is the insured [facility] [address] [address] [place], [place] [id number] Ira Lentz Self - patient is the insured Medicaid [address] [place] [address] [phone] [id number] Ira Lentz Self - patient is the insured Medical (General) History Medical History History ICD Code bronchitis
== END 2025-08-13 10:38 | disposition home or self-care (01) ==
LOC: HO.ENCR 09:55
PROVIDERS: PCP Student in an Organized Health Care Education/Training Program; Visit Provider Dietitian, Registered
DX: E66.9 Obesity, unspecified (principal)

== ENCOUNTER → 2025-08-13 09:55 | Outpatient (BNVA) | payer OTHER, SELFPAY | PROVIDERS: PCP Student in an Organized Health Care Education/Training Program; Visit Provider Dietitian, Registered | DX: Z71.3 Dietary counseling and surveillance (principal); E66.9 Obesity, unspecified | CPT/HCPCS: 97802 ==